=== PATIENT | female | born 1985 | race Caucasian/White ===

== ENCOUNTER 2020-02-26 19:46 | Emergency (ER) | payer SELFPAY ==
[~2020-02-26] VITALS: Ht 182.9 cm; Wt 81.6 kg
--- NOTE | 2020-02-26 20:00 | NUR ---
PT CAME TO THE ED C/O L SIDED ON AND OFF "PULLING" CHEST PAIN SINCE THURSDAY WHILE THE PATIENT WAS SITTING DOWN. -SOB -DIPAHORESIS -N/V. PT AAOX4, HR 54 NOTED, RESPIRATIONS EVEN AND UNLABORED ON RA W/ NAD NOTED. AMBULATORY. PT CONNECTED TO THE [place] [employer] AND POX.
[2020-02-26 20:41] LABS: EOSINOPHILS % (AUTO) 2.6 % (0.0-6.0); HEMATOCRIT 41 % (33-45); LYMPHOCYTES # (AUTO) 2.3 /CMM (0.8-4.8); LYMPHOCYTES % (AUTO) 47.3 % (20.0-44.0); MEAN CORPUSCULAR HGB CONC 31 g/dl (31.0-36.0); MEAN CORPUSCULAR VOLUME 74 fL (82-100); MONOCYTES # (AUTO) 0.2 /CMM (0.1-1.30); MONOCYTES % (AUTO) 3.8 % (2.0-12.0); NEUTROPHILS # (AUTO) 2.2 /CMM (1.8-8.9); NEUTROPHILS % (AUTO) 45.3 % (43.0-81.0); PLATELET COUNT (AUTO) 168 /CMM (150-450); RED BLOOD CELL COUNT(AUTO) 5.56 MIL/uL (4.0-5.2); WHITE BLOOD COUNT (AUTO) 4.9 K/uL (4.3-11.0)
[2020-02-26 21:19] LABS: CALCIUM, SERUM 9.3 mg/dL (8.5-10.1); CARBON DIOXIDE 25 mmol/L (21-32); CHLORIDE 105 mmol/L (98-107); GLUCOSE 75 mg/dL (74-106); POTASSIUM 3.9 mmol/L (3.5-5.1); SODIUM SERUM 140 mmol/L (136-145); UREA NITROGEN, BLOOD 12 mg/dL (7-18)
--- NOTE | 2020-02-26 22:02 | NUR ---
PT IS MEDICALLY STABLE FOR D/C,. Patient discharged to home in stable condition. Written and verbal after care instructions given. Patient verbalizes understanding of instruction.
[2020-02-26 22:03] VITALS: BP 135/71
== END 2020-02-26 22:03 | disposition home or self-care (01) ==
LOC: ER 19:46
DX: R07.89 Other chest pain (principal); R00.1 Bradycardia, unspecified; Z98.890 Other specified postprocedural states; Z60.2 Problems related to living alone
CPT/HCPCS: 36415; 71045-TC; 80048-TC; 84484-TC; 85025-TC

== ENCOUNTER 2024-02-07 13:57 | Emergency (ER) | payer MEDICAID, OTHER ==
[~2024-02-07] VITALS: Ht 182.9 cm; Wt 77.6 kg
[2024-02-07] MEDS ORDERED: IBUPROFEN 600 MG TABLET ONE (16:04)
[2024-02-07] MEDS ORDERED: CYCLOBENZAPRINE 10 MG TABLET ONE (16:04)
[2024-02-07] MEDS: IBUPROFEN 600 MG TABLET PO ONE (16:07)
[2024-02-07] MEDS: CYCLOBENZAPRINE 10 MG TABLET PO ONE (16:07)
[2024-02-07 16:14] VITALS: BP 115/72; TEMP 98.4; O2SAT 100
== END 2024-02-07 16:43 | disposition home or self-care (01) ==
LOC: ER 13:57
DX: R51.9 Headache, unspecified (principal); Z60.2 Problems related to living alone; V43.52XA Car driver injured in collision with other type car in traffic accident, initial encounter; Y93.89 Activity, other specified; Y92.488 Other paved roadways as the place of occurrence of the external cause; Y99.8 Other external cause status

== ENCOUNTER 2024-10-17 01:40 | Emergency (ER) | payer OTHER | END 2024-10-17 03:25 | disposition left against medical advice (07) | LOC: ER 01:45 | DX: Z00.00 Encounter for general adult medical examination without abnormal findings (principal); Z53.21 Procedure and treatment not carried out due to patient leaving prior to being seen by health care provider ==